=== PATIENT | male | born 1950 | race Caucasian/White ===

== ENCOUNTER → 2018-06-11 | Outpatient (CLI) | payer MEDICARE ==
--- NOTE | 2018-06-11 11:05 | MR ---
EXAMINATION TYPE: MR knee LT wo con DATE OF EXAM: 06/11/2018 COMPARISON: X-ray 04/15/2018 submitted from outside hospital HISTORY: Left knee pain TECHNIQUE: Multiplanar, multisequence imaging of the left knee is performed without IV contrast. FINDINGS: MEDIAL MENISCUS: There is a complex tear involving the posterior horn and body medial meniscus. Adjac ent marrow edema likely reactive. PseudoExtrusion of the meniscus noted. LATERAL MENISCUS: Anterior and posterior horns are intact without tear. CRUCIATE LIGAMENTS: The anterior and posterior cruciate ligaments are intact and unremarkable. COLLATERAL LIGAMENTS: There is increased signal surrounding the medial collateral ligament. Findings compatible with grade 1 strain. No definite through thickness tear. EXTENSOR MECHANISM: Visualized quadriceps and patellar tendons are intact. EFFUSION: Small amount of fluid in the suprapatellar bursa. POPLITEAL CYST: There is a small amount of fluid in the posterior compartment knee. There is a 0.51 x 3.5 cm popliteal fossa cyst with slightly irregular margins which may reflect recent rupture or ton josé luis popliteal cyst. TRICOMPARTMENT SPACES: There is significant loss of joint space involving the medial compartment of t he joint with hypertrophic spurring. Mild narrowing the joint space involving the patellofemoral join t. No erosive changes. 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 There is thinning of the medial fe moral articular cartilage and tibial cartilage compatible with chondromalacia secondary to osteoarthr itis. BONE MARROW SIGNAL: Abnormal signal involving the medial tibial plateau and medial articular femur li [place] reactive secondary to severe osteoarthritis.. OTHER: No additional significant abnormality is appreciated. IMPRESSION: 1. 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 2. Grade 1 MCL sprain. 3. Suspect a ruptured popliteal fossa cyst as discussed above.
== END ==
LOC: RADMRIMAIN 09:02
PROVIDERS: ATTEND Orthopaedic Surgery
DX: S83.412A Sprain of medial collateral ligament of left knee, initial encounter (principal); M17.12 Unilateral primary osteoarthritis, left knee

== ENCOUNTER 2018-09-25 09:37 | Day surgery (SDC) | payer MEDICARE ==
[2018-09-23 09:05] VITALS: BMI 25.9
[~2018-09-25 09:37] MED LIST: LACTATED RINGERS 1,000 ML IV SCH; LIDOCAINE 1% 20 ML VIAL (10MG/ML) FOR IV START INTRADERMA PRN
[2018-09-25 10:01] VITALS: TEMP 96.6
[2018-09-25] MEDS ORDERED: LIDOCAINE 1% INJ 10MG/ML (20 ML MDV) ONE (10:38)
[2018-09-25] MEDS ORDERED: PROPOFOL 10 MG/ML 20 ML VIAL IV ONE (10:38)
--- NOTE | 2018-09-25 11:10 | P.PCN ---
Date of Procedure: 09/25/18 Procedure(s) Performed: BRIEF HISTORY: Patient is a 68-year-old pleasant white male, scheduled for an elective colonoscopy as a part of screening for colorectal neoplasia. Last endoscopy was 12 years ago. PROCEDURE PERFORMED: Colonoscopy. PREOPERATIVE DIAGNOSIS: Screening for colon cancer. IV sedation per Anesthesia. PROCEDURE: After informed consent was obtained, the patient, was brought into the endoscopy unit. IV sedation was administered by Anesthesia under continuous monitoring. Digital rectal examination was normal. Initially the Olympus CF-160 flexible video colonoscope was then inserted in the rectum, gradually advanced into the cecum without any difficulty. Careful examination was performed as the scope was gradually being withdrawn. Ileocecal valve and the appendiceal orifice were visualized and appeared normal. Prep was excellent. Mucosa of the cecum, ascending colon, transverse colon, descending colon, sigmoid colon, and rectum appeared normal. Retroflexion was performed in the rectum and no lesions were seen. The patient tolerated the procedure well. IMPRESSION: Normal-appearing colon from rectum to cecum with no evidence of colorectal neoplasia . RECOMMENDATIONS: Findings of this examination were discussed with the patient as well as his family. He was advised to have a repeat screening colonoscopy in 10 years.
[2018-09-25 11:25] VITALS: BP 110/77; PULSE 65; RESP 18
== END 2018-09-25 11:44 | disposition home or self-care (01) ==
LOC: ORWHC2ENDO 09:37
PROVIDERS: ATTEND Internal Medicine Gastroenterology
DX: Z12.11 Encounter for screening for malignant neoplasm of colon (principal); I10 Essential (primary) hypertension; E78.5 Hyperlipidemia, unspecified; Z79.899 Other long term (current) drug therapy; Z90.49 Acquired absence of other specified parts of digestive tract
CPT/HCPCS: J2001; J2704; G0121; 45378